=== PATIENT | male | born 1960 | race Caucasian/White ===

== ENCOUNTER 2021-12-29 09:55 | Emergency (ER) | payer OTHER ==
[2021-12-29] MEDS: Lidocaine 1% 20 ML MDV INJECT ONE (10:50)
[2021-12-29] MEDS: Amoxicillin/Clavulanate K 875-125 MG Tab PO ONE (11:07)
== END 2021-12-29 11:15 | disposition home or self-care (01) ==
LOC: KA.ED 09:55
DX: S62.653B Nondisplaced fracture of middle phalanx of left middle finger, initial encounter for open fracture (principal); W23.1XXA Caught, crushed, jammed, or pinched between stationary objects, initial encounter
CPT/HCPCS: 12001; 73140-F2; 99283; A9270-GY